=== PATIENT | female | born 1945 | race Caucasian/White ===

== ENCOUNTER → 2018-07-03 | Outpatient (CLI) | payer MEDICARE ==
[~2018-07-03] MED LIST: ALEN70TA5 PO; AMLO10TA6 PO; ERGO500017 PO; FURO-92 PO; GEMF600T4 PO; IBUP200T64 PO; OMEP-110 PO; POTASSIUM PO
[2018-07-03 12:15] LABS: ALBUMIN 4.1 g/dL (3.4-5.0); ANION GAP 10 mmol/L (5-15); CALCIUM 9.1 mg/dL (8.5-10.1); CHLORIDE 106 mmol/L (98-107)
[2018-07-03 12:18] LABS: ALANINE AMINOTRANSFERASE 26 U/L (12-78); ALKALINE PHOSPHATASE 123 U/L (45-117); BILIRUBIN,TOTAL 0.5 mg/dL (0.2-1.0); TOTAL PROTEIN 8.1 g/dL (6.4-8.2)
== END | disposition home or self-care (01) ==
LOC: STAR 10:57
PROVIDERS: ATTEND Obstetrics & Gynecology Female Pelvic Medicine and Reconstructive Surgery
DX: Z01.818 Encounter for other preprocedural examination (principal); R10.2 Pelvic and perineal pain; N39.3 Stress incontinence (female) (male); N81.10 Cystocele, unspecified; N81.6 Rectocele; I45.10 Unspecified right bundle-branch block
CPT/HCPCS: 36415; 80053; 93005

== ENCOUNTER 2018-07-13 07:15 | Day surgery (SDC) | payer MEDICARE ==
[~2018-07-13] VITALS: Ht 157.5 cm; Wt 75.2 kg
[~2018-07-13 07:15] MED LIST changes: +BUPIVACAINE/PF-EPI 0.25% 1:200K ONE; +NEOMY/POLYMYXIN B GU IRR. 1 ML IRRIG ONE
[2018-07-13] MEDS ORDERED: LACTATED RINGERS 1,000 ML IV SCH (07:48)
[2018-07-13 07:51] VITALS: BP 152/94
[2018-07-13] MEDS ORDERED: MIDAZOLAM 1 MG/ML, 2ML ONE (09:29)
[2018-07-13] MEDS ORDERED: FENTANYL PF 100 MCG/2ML ONE (09:29)
[2018-07-13] MEDS ORDERED: DEXAMETHASONE 4 MG/ML, 1ML ONE (09:31)
[2018-07-13] MEDS ORDERED: ROCURONIUM 10MG/ML,5ML ONE (09:31)
[2018-07-13] MEDS ORDERED: METOCLOPRAMIDE 5 MG/ML, 2ML ONE (09:31)
[2018-07-13] MEDS ORDERED: CEFAZOLIN 1,000 MG ONE (09:31)
[2018-07-13] MEDS ORDERED: PROPOFOL 10 MG/ML, 20ML ONE (09:31)
[2018-07-13] MEDS ORDERED: ONDANSETRON 2MG/ML, 2ML ONE (09:31)
[2018-07-13] MEDS ORDERED: NEOSTIGMINE 1 MG/ML, 10ML ONE (09:32)
[2018-07-13] MEDS ORDERED: LIDOCAINE JELLY 2%, 30GM ONE (09:32)
[2018-07-13] MEDS ORDERED: GLYCOPYRROLATE 0.2MG/1ML, 5ML ONE (09:32)
[2018-07-13] MEDS ORDERED: OXYcodone 5 MG/5 ML ORAL.SOL UDC ONE (11:15)
[2018-07-13] MEDS ORDERED: MEPERIDINE/PF 50 MG/ML ONE (11:15)
[2018-07-13] MEDS ORDERED: MEPERIDINE/PF 25MG/0.5ML IVPush PRN (11:30)
[2018-07-13] MEDS ORDERED: MIDAZOLAM 1 MG/ML, 2ML IV PRN (11:30)
[2018-07-13] MEDS ORDERED: LABETALOL 5MG/ML, 20ML IV PRN (11:30)
[2018-07-13] MEDS ORDERED: OXYcodone 5 MG/5 ML ORAL.SOL UDC PO PRN (11:30)
[2018-07-13] MEDS ORDERED: ONDANSETRON 2MG/ML, 2ML IVPush PRN (11:30)
[2018-07-13] MEDS ORDERED: FENTANYL PF 100 MCG/2ML IV PRN (11:30)
[2018-07-13] MEDS ORDERED: HYDROmorphone 1 MG/ML, 1ML IV PRN (11:30)
== END 2018-07-13 15:30 | disposition home or self-care (01) ==
LOC: OUT 07:15
PROVIDERS: ATTEND Obstetrics & Gynecology Female Pelvic Medicine and Reconstructive Surgery
DX: N81.4 Uterovaginal prolapse, unspecified (principal); N39.46 Mixed incontinence; D25.9 Leiomyoma of uterus, unspecified; N88.8 Other specified noninflammatory disorders of cervix uteri; K21.9 Gastro-esophageal reflux disease without esophagitis; I10 Essential (primary) hypertension; Z87.39 Personal history of other diseases of the musculoskeletal system and connective tissue; Z85.828 Personal history of other malignant neoplasm of skin; Z98.890 Other specified postprocedural states; Z96.653 Presence of artificial knee joint, bilateral; Z98.42 Cataract extraction status, left eye; Z98.41 Cataract extraction status, right eye; Z86.73 Personal history of transient ischemic attack (TIA), and cerebral infarction without residual deficits
CPT/HCPCS: 57265; 57282; 57288; 58552; 88305; C1771; J0690; J1100; J2175; J2250; J2405; J2704; J2710; J2765; J3010; J3490

== ENCOUNTER → 2019-04-19 | Outpatient (CLI) | payer MEDICARE ==
[~2019-04-19] MED LIST changes: -ALEN70TA5 PO; +ALEN70TA6 PO; -AMLO10TA6 PO; +AMLO10TA8 PO; -BUPIVACAINE/PF-EPI 0.25% 1:200K ONE; -GEMF600T4 PO; +GEMF600T8 PO; -NEOMY/POLYMYXIN B GU IRR. 1 ML IRRIG ONE
== END | disposition home or self-care (01) ==
LOC: STAR 12:20
PROVIDERS: ATTEND Obstetrics & Gynecology Female Pelvic Medicine and Reconstructive Surgery
DX: I45.10 Unspecified right bundle-branch block (principal)
CPT/HCPCS: 93005

== ENCOUNTER 2019-04-26 09:35 | Day surgery (SDC) | payer MEDICARE ==
[~2019-04-26] VITALS: Ht 157.5 cm; Wt 70.1 kg
[~2019-04-26 09:35] MED LIST changes: +BUPIVACAINE/PF 0.25% ONE; +NEOMY/POLYMYXIN B GU IRR. 1 ML ONE
[2019-04-26] MEDS ORDERED: LACTATED RINGERS 1,000 ML IV SCH (10:09)
[2019-04-26] MEDS ORDERED: OMEG1CAP23 PO (10:27)
[2019-04-26] MEDS ORDERED: OXYB5TAB7 PO (10:27)
[2019-04-26] MEDS ORDERED: TYLENOL ARTHRITIS PO (10:27)
[2019-04-26] MEDS ORDERED: ACETAMINOPHEN 500 MG TABLET PO ONE (10:30)
[2019-04-26] MEDS ORDERED: PLEASE ENTER HEIGHT AND WEIGHT MC SCH (10:30)
[2019-04-26] MEDS ORDERED: GABAPENTIN 300 MG CAPSULE PO ONE (10:30)
[2019-04-26 10:31] VITALS: BP 130/84
[2019-04-26] MEDS ORDERED: FENTANYL PF 100 MCG/2ML ONE (10:54)
[2019-04-26 11:05] LABS: ALANINE AMINOTRANSFERASE 21 U/L (12-78); ALBUMIN 4.4 g/dL (3.4-5.0); ANION GAP 8 mmol/L (5-15); CHLORIDE 108 mmol/L (98-107); CREATININE 0.65 mg/dL (0.55-1.02)
[2019-04-26 11:07] LABS: ALKALINE PHOSPHATASE 102 U/L (45-117); BILIRUBIN,TOTAL 0.8 mg/dL (0.2-1.0)
[2019-04-26] MEDS ORDERED: DEXAMETHASONE 4 MG/ML, 1ML ONE (12:21)
[2019-04-26] MEDS ORDERED: CEFAZOLIN 1,000 MG ONE (12:21)
[2019-04-26] MEDS ORDERED: ROCURONIUM 10MG/ML,5ML ONE (12:21)
[2019-04-26] MEDS ORDERED: SUCCINYLCHOLINE 20 MG/ML, 10ML ONE (12:21)
[2019-04-26] MEDS ORDERED: NEOSTIGMINE 1 MG/ML, 10ML ONE (12:21)
[2019-04-26] MEDS ORDERED: ONDANSETRON 2MG/ML, 2ML ONE (12:21)
[2019-04-26] MEDS ORDERED: GLYCOPYRROLATE 0.2MG/1ML, 5ML ONE (12:21)
[2019-04-26] MEDS ORDERED: PROPOFOL 10 MG/ML, 20ML ONE (12:21)
[2019-04-26] MEDS ORDERED: KETOROLAC 30 MG/1 ML ONE (12:43)
[2019-04-26] MEDS ORDERED: OXYcodone 5 MG/5 ML ORAL.SOL UDC ONE (12:44)
[2019-04-26] MEDS ORDERED: DIPHENHYDRAMINE 50 MG/ML, 1ML IVPush PRN (13:00)
[2019-04-26] MEDS ORDERED: HALOPERIDOL 5 MG/ML IV PRN (13:00)
[2019-04-26] MEDS ORDERED: PROMETHAZINE 25 MG/ML, 1ML IV PRN (13:00)
[2019-04-26] MEDS ORDERED: hydrALAzine 20 MG/ML, 1ML IV PRN (13:00)
[2019-04-26] MEDS ORDERED: FENTANYL PF 100 MCG/2ML IV PRN (13:00)
[2019-04-26] MEDS ORDERED: PROCHLORPERAZINE 5 MG/ML, 2ML IV PRN (13:00)
[2019-04-26] MEDS ORDERED: METOPROLOL 1 MG/ML, 5ML IV PRN (13:00)
[2019-04-26] MEDS ORDERED: OXYcodone 5 MG/5 ML ORAL.SOL UDC PO PRN (13:00)
[2019-04-26] MEDS ORDERED: LABETALOL 5MG/ML, 20ML IV PRN (13:00)
[2019-04-26] MEDS ORDERED: MEPERIDINE/PF 25MG/0.5ML IVPush PRN (13:00)
[2019-04-26] MEDS ORDERED: HYDROmorphone 2 MG/ML, 1ML IVPush PRN (13:00)
[2019-04-26] MEDS ORDERED: KETOROLAC 30 MG/1 ML IVPush ONE (13:00)
== END 2019-04-26 16:00 | disposition home or self-care (01) ==
LOC: OUT 09:35
PROVIDERS: ATTEND Obstetrics & Gynecology Female Pelvic Medicine and Reconstructive Surgery
DX: N81.89 Other female genital prolapse (principal); N39.46 Mixed incontinence; N32.81 Overactive bladder; Z85.828 Personal history of other malignant neoplasm of skin; Z98.51 Tubal ligation status; Z98.890 Other specified postprocedural states; Z88.8 Allergy status to other drugs, medicaments and biological substances
CPT/HCPCS: 36415; 57265; 57282; 57288; 80053; C1771; J0330; J0690; J1100; J1200; J1885; J2405; J2704; J2710; J3010; J3490; J7120

== ENCOUNTER 2019-11-01 10:48 | Day surgery (SDC) | payer MEDICARE ==
[2019-10-29 09:38] LABS: MICROSCOPIC INDICATED
[~2019-11-01] VITALS: Ht 157.5 cm; Wt 68.8 kg
[~2019-11-01 10:48] MED LIST changes: -BUPIVACAINE/PF 0.25% ONE; +DENO60DI INJ; -NEOMY/POLYMYXIN B GU IRR. 1 ML ONE; +OMEG1CAP23 PO; +OXYB5TAB10 PO; +TYLENOL ARTHRITIS PO
[2019-11-01 11:24] VITALS: BP 124/84
[2019-11-01] MEDS ORDERED: LACTATED RINGERS 1,000 ML IV SCH (11:26)
[2019-11-01] MEDS ORDERED: PROPOFOL 50 ML ONE ×2 (13:00→13:53)
[2019-11-01] MEDS ORDERED: MIDAZOLAM 1 MG/ML, 2ML ONE (13:01)
[2019-11-01] MEDS ORDERED: FENTANYL PF 250 MCG/5ML ONE (13:01)
[2019-11-01] MEDS ORDERED: CEFAZOLIN 1,000 MG ONE (13:10)
[2019-11-01] MEDS ORDERED: DEXAMETHASONE 4 MG/ML, 1ML ONE (14:08)
[2019-11-01] MEDS ORDERED: ONDANSETRON 2MG/ML, 2ML ONE (14:08)
[2019-11-01] MEDS ORDERED: KETOROLAC 30 MG/1 ML ONE (14:08)
[2019-11-01] MEDS ORDERED: ONDANSETRON 2MG/ML, 2ML IV PRN (14:30)
[2019-11-01] MEDS ORDERED: ONDANSETRON ODT 8 MG PO PRN (14:30)
[2019-11-01] MEDS ORDERED: FENTANYL PF 100 MCG/2ML IV PRN (14:30)
[2019-11-01] MEDS ORDERED: EPHEDRINE 50 MG/ML, 1ML IM PRN (14:30)
[2019-11-01] MEDS ORDERED: ACETAMINOPHEN 325 MG TABLET PO PRN (14:30)
[2019-11-01] MEDS ORDERED: METOCLOPRAMIDE 5 MG/ML, 2ML IV PRN (14:30)
[2019-11-01] MEDS ORDERED: MORPHINE SULFATE 4 MG/ML, 1ML IVPush PRN (14:30)
[2019-11-01] MEDS ORDERED: DIAZEPAM 5 MG/ML, 2ML IVPush PRN (14:30)
[2019-11-01] MEDS ORDERED: MIDAZOLAM 1 MG/ML, 2ML IV PRN (14:30)
[2019-11-01] MEDS ORDERED: PROMETHAZINE 25 MG/ML, 1ML IV PRN (14:30)
[2019-11-01] MEDS ORDERED: OXYcodone 5 MG/5 ML ORAL.SOL UDC PO PRN (14:30)
[2019-11-01] MEDS ORDERED: DIPHENHYDRAMINE 50 MG/ML, 1ML IVPush PRN (14:30)
[2019-11-01] MEDS ORDERED: EPHEDRINE 50 MG/ML, 1ML IVPush PRN (14:30)
== END 2019-11-01 16:05 | disposition home or self-care (01) ==
LOC: OUT 10:48
PROVIDERS: ATTEND Urology
DX: N13.2 Hydronephrosis with renal and ureteral calculous obstruction (principal); I10 Essential (primary) hypertension; I45.10 Unspecified right bundle-branch block; Z79.899 Other long term (current) drug therapy; Z88.8 Allergy status to other drugs, medicaments and biological substances; Z96.653 Presence of artificial knee joint, bilateral
CPT/HCPCS: 52356; 74018; 81001; 87086; 93005; C1726; C1769; C2617; J0690; J1100; J1885; J2250; J2405; J2704; J3010; J7120; 76000

== ENCOUNTER → 2021-03-05 | Outpatient (CLI) | payer MEDICARE ==
[~2021-03-05] MED LIST changes: -ALEN70TA6 PO; +ALEN70TA77 PO; +AMLO-211 PO; -AMLO10TA8 PO; +GEMF-31 PO; -GEMF600T8 PO
== END | disposition home or self-care (01) ==
LOC: CFH 15:51
PROVIDERS: ATTEND Physician Assistant
DX: N20.0 Calculus of kidney (principal)
CPT/HCPCS: 74176